=== PATIENT | male | born 1960 | race Caucasian/White ===

== ENCOUNTER 2016-12-08 18:33 | Inpatient (IN) | payer OTHER ==
[~2016-12-08] VITALS: Ht 167.6 cm; Wt 94.5 kg
[~2016-12-08 18:33] MED LIST: APAP/HYDROCODON1 T46 PO; ASPIRIN; ASPIRIN325 MG PO; CITALOPRAM10 MG PO; EFFIENT10 MG PO; LIPITOR40 MG PO; Lopressor25 MG PO; SPIRIVA18 MCG PO; VENTOLIN H0.09 MG/AC INH
[2016-12-08 18:43] VITALS: BP 143/85
[2016-12-08] MEDS ORDERED: CITRATE OF1.75 GM/31 PO (18:44)
[2016-12-08] MEDS ORDERED: COUMADIN0.5 MG PO (18:45)
[2016-12-08] MEDS ORDERED: ZOCOR20 MG PO (18:46)
[2016-12-08] MEDS ORDERED: AMITRIPTYLINE25 MG PO (18:46)
[2016-12-08] MEDS ORDERED: TIKOSYN0.5 MG PO (18:46)
[2016-12-08] MEDS ORDERED: TOPAMAX50 MG PO (18:46)
[2016-12-08] MEDS ORDERED: LISINOPRIL5 MG PO (18:47)
[2016-12-08] MEDS ORDERED: ISOSORBIDE DINI30 MG PO (18:47)
[2016-12-08] MEDS ORDERED: TOPROL XL50 M1 PO (18:47)
[2016-12-08 19:28] VITALS: BP 122/81
[2016-12-08 19:34] LABS: BILIRUBIN NEGATIVE (NEGATIVE); BLOOD NEGATIVE (NEGATIVE); CLARITY SL CLOUDY (CLEAR); COLOR YELLOW (YELLOW); GLUCOSE NEGATIVE (NEGATIVE); KETONE NEGATIVE (NEGATIVE); LEUKO ESTERASE NEGATIVE (NEGATIVE); NITRITE NEGATIVE (NEGATIVE); PROTEIN NEGATIVE (NEGATIVE); UROBILINOGEN 0.2 E.U./dl (0.2-1.0)
[2016-12-08 19:41] LABS: URINE REFLEX COMMENT YES (NO)
[2016-12-08 19:42] LABS: BACTERIA 2+; RBC 0-2 rbc/hpf (0-2); WBC 0-2 wbc/hpf (0-5)
[2016-12-08 20:05] LABS: BASO # 0.1 10*3/uL (0.0-0.1); BASO % 0.7 % (0.0-1.0); EOS # 0.3 10*3/uL (0.0-0.4); EOS % 3.7 % (1.0-4.0); HEMATOCRIT 47.5 % (42.0-52.0); HEMOGLOBIN 16.2 g/dl (14.0-18.0); LYMPH % 27.7 % (27.0-41.0); MEAN CORPUSCULAR HGB CONC 34.1 g/dl (33.0-37.0); MEAN PLATELET VOLUME 10.8 fl (9.6-12.3); MONO # 0.6 10*3/uL (0.1-1.0); MONO % 7.6 % (3.0-9.0); NEUT # 4.3 10*3/uL (2.3-7.9); NEUT % 59.7 % (47.0-73.0); PLATELET COUNT AUTOMATED 197 10*3/uL (130-400); RED BLOOD COUNT 5.22 10*6/uL (4.50-5.90); RED CELL DISTRI WIDTH 13.2 % (0-14.5); WHITE BLOOD COUNT 7.2 10*3/uL (4.8-10.8)
[2016-12-08 20:16] LABS: ALBUMIN 3.5 gm/dl (3.1-4.5); ALKALINE PHOSPHATASE 53 U/L (45-117); BILIRUBIN, TOTAL 0.3 mg/dl (0.2-1.0); BUN 15 mg/dl (7-24); CARBON DIOXIDE 26 mmol/L (21-32); CHLORIDE 107 mmol/L (98-107); EST GLOM FILT AFRICAN AMERICAN > 60 ml/min; GLUCOSE 105 mg/dL (65-99); POTASSIUM 4.3 mmol/L (3.5-5.1); SGOT/AST 21 IU/L (3-35); SGPT/ALT 29 U/L (12-78); SODIUM 143 mmol/L (136-145); TOTAL PROTEIN 6.6 gm/dL (6.4-8.2)
[2016-12-08 20:19] LABS: C-REACTIVE PROTEIN < 0.29 MG/DL (0-0.3)
[2016-12-08 20:30] VITALS: BP 143/89
[2016-12-09] VITALS: BP 142/94
[2016-12-09] MEDS ORDERED: Ipratropium Brom3 ML INH (00:41)
[2016-12-09 06:43] LABS: BASO % 0.6 % (0.0-1.0); EOS # 0.3 10*3/uL (0.0-0.4); EOS % 4.4 % (1.0-4.0); HEMATOCRIT 46.9 % (42.0-52.0); HEMOGLOBIN 16.1 g/dl (14.0-18.0); LYMPH # 1.8 10*3/uL (1.3-4.4); LYMPH % 27.3 % (27.0-41.0); MEAN CELL VOLUME 91.1 fl (80.0-94.0); MEAN CORPUSCULAR HGB 31.3 pg (27.0-31.0); MEAN CORPUSCULAR HGB CONC 34.3 g/dl (33.0-37.0); MEAN PLATELET VOLUME 10.9 fl (9.6-12.3); MONO # 0.5 10*3/uL (0.1-1.0); MONO % 7.7 % (3.0-9.0); NEUT # 3.9 10*3/uL (2.3-7.9); NEUT % 59.4 % (47.0-73.0); PLATELET COUNT AUTOMATED 172 10*3/uL (130-400); RED BLOOD COUNT 5.15 10*6/uL (4.50-5.90); RED CELL DISTRI WIDTH 13.1 % (0-14.5); WHITE BLOOD COUNT 6.5 10*3/uL (4.8-10.8)
[2016-12-09 07:20] LABS: ALBUMIN 3.3 gm/dl (3.1-4.5); BUN 12 mg/dl (7-24); CARBON DIOXIDE 27 mmol/L (21-32); CHLORIDE 108 mmol/L (98-107); CHOLESTEROL 161 mg/dL (<200); EST GLOM FILT AFRICAN AMERICAN > 60 ml/min; GLUCOSE 81 mg/dL (65-99); MAGNESIUM 2.5 mg/dL (1.5-2.1); PHOSPHOROUS 2.5 mg/dL (2.5-4.9); POTASSIUM 4.2 mmol/L (3.5-5.1); SGOT/AST 17 IU/L (3-35); SGPT/ALT 28 U/L (12-78); SODIUM 143 mmol/L (136-145); TRIGLYCERIDES 208 mg/dl (<150); VLDL CHOLESTEROL 42 mg/dL (6-40)
[2016-12-09 07:27] LABS: ALKALINE PHOSPHATASE 51 U/L (45-117); BILIRUBIN, TOTAL 0.4 mg/dl (0.2-1.0); FREE T4 0.83 ng/dl (0.76-1.46); HDL CHOLESTEROL 35 mg/dl (40-60); LDL CHOLESTEROL 84 mg/dL (9-159); TOTAL PROTEIN 6.3 gm/dL (6.4-8.2)
[2016-12-09 08:00] VITALS: BP 134/84
[2016-12-09 08:13] LABS: FOLIC ACID 7.73 ng/mL (>5.38); VITAMIN D, 25-HYDROXY 27.2 ng/mL (30-100)
[2016-12-09 12:00] VITALS: BP 138/83
[2016-12-09] MEDS ORDERED: Oscal,Oyster S500 MG PO (12:01)
[2016-12-09] MEDS ORDERED: VITAMIN D1000 IU PO (12:04)
== END 2016-12-09 14:40 | disposition home or self-care (01) | DRG 392 ==
LOC: ED 18:33 → 5E 21:02 → EDHOLD 21:02 → 5E 21:45
PROVIDERS: Emergency Medicine Emergency Medical Services; Family Medicine
DX: R10.9 Unspecified abdominal pain (principal); G40.209 Localization-related (focal) (partial) symptomatic epilepsy and epileptic syndromes with complex partial seizures, not intractable, without status epilepticus; K59.00 Constipation, unspecified; R73.9 Hyperglycemia, unspecified; J44.9 Chronic obstructive pulmonary disease, unspecified; I25.10 Atherosclerotic heart disease of native coronary artery without angina pectoris; F17.210 Nicotine dependence, cigarettes, uncomplicated; F41.9 Anxiety disorder, unspecified; E66.9 Obesity, unspecified; R82.71 Bacteriuria; Z79.01 Long term (current) use of anticoagulants; Z79.899 Other long term (current) drug therapy; Z72.89 Other problems related to lifestyle; Z90.49 Acquired absence of other specified parts of digestive tract; Z80.0 Family history of malignant neoplasm of digestive organs; Z71.6 Tobacco abuse counseling; Z68.33 Body mass index [BMI] 33.0-33.9, adult

== ENCOUNTER → 2017-05-10 | Day surgery (SDC) | payer OTHER ==
[~2017-05-10] VITALS: Ht 167.6 cm; Wt 93.0 kg
[2017-05-10] VITALS (10 sets, daily range): BP systolic 110–162; BP diastolic 74–100
[~2017-05-10] MED LIST changes: +AMITRIPTYLINE25 MG PO; +CITRATE OF1.75 GM/31 PO; +CLINDAMYCIN150 MG PO; +COUMADIN0.5 MG PO; +ISOSORBIDE DINI30 MG PO; +Ipratropium Brom3 ML INH; +LISINOPRIL5 MG PO; +NORCO 5-325 TA1 EACH PO; +Oscal,Oyster S500 MG PO; +TIKOSYN0.5 MG PO; +TOPAMAX50 MG PO; +TOPROL XL50 M1 PO; +VITAMIN D1000 IU PO; +ZOCOR20 MG PO
--- NOTE | ~2017-05-10 | EKG ---
[place], [place] ELECTROCARDIOGRAM REPORT NAME: CHICA CORLEY UNIT #: [id number] ROOM: DOCTOR: BELLO RICHARDSON,TEE BIRTHDATE: [birth year] DOS: 05/10/2017 TIME: 1136 hours. IMPRESSION: 1. Sinus rhythm. 2. Right bundle branch block. 3. Left anterior fascicular block. 4. Non-specific ST elevation. 5. Prolonged QTc interval. TEE MONSALVE MD CM:EKGRPT:ELECTROCARDIOGRAM REPORT [id number] TEE MONSALVE MD
--- NOTE | ~2017-05-10 | O ---
[place], [place] OPERATIVE NOTE NAME: CHICA CORLEY UNIT #: [id number] ROOM: DOCTOR: MOHINDER PAYNE DMD BIRTHDATE: [birth year] DOS: PREOPERATIVE DIAGNOSES: Caries, periodontal disease and anxiety. POSTOPERATIVE DIAGNOSES: Caries, periodontal disease and anxiety. ANESTHESIA: General anesthesia with nasotracheal intubation. FLUIDS: Minimal. ESTIMATED BLOOD LOSS: Minimal. COMPLICATIONS: None. CONDITION: To PACU, stable. DESCRIPTION OF PROCEDURE: The patient was brought to the OR and placed in supine position. IV and EKG lines were placed. Nasotracheal intubation and general anesthesia was administered. The patient was prepped and draped for oral procedures. Risks and benefits were explained to the patient prior to surgery. Clinical exam and x-rays taken determined nonrestorable maxillary and mandibular dentition. PROCEDURES PERFORMED: Complete extraction of teeth #6, 7, 8, 9, 10, 11, 13, 20, 21, 22, 23, 24, 25, 26, 27, 28 and 29. Full thickness flaps with moderate alveoplasty, Gelfoam and 4-0 Vicryl sutures were placed. Maxillary temporary denture was tried in. Lavage x 2. Throat pack removed. The patient left the OR in good condition and went to PACU. MOHINDER PAYNE DMD CM:OPRECORD:OPERATIVE NOTE [id number] MOHINDER PAYNE DMD 05/11/17 1058 interface
== END | disposition home or self-care (01) ==
LOC: SDC 05-04 09:30
DX: K02.9 Dental caries, unspecified (principal); I25.2 Old myocardial infarction; I48.91 Unspecified atrial fibrillation; J44.9 Chronic obstructive pulmonary disease, unspecified; F17.210 Nicotine dependence, cigarettes, uncomplicated; Z79.899 Other long term (current) drug therapy; Z79.01 Long term (current) use of anticoagulants; Z90.49 Acquired absence of other specified parts of digestive tract

== ENCOUNTER 2017-06-30 10:31 | Emergency (ER) | payer OTHER ==
[~2017-06-30] VITALS: Wt 92.1 kg
[2017-06-30 11:22] LABS: BILIRUBIN NEGATIVE (NEGATIVE); BLOOD NEGATIVE (NEGATIVE); CLARITY SL CLOUDY (CLEAR); COLOR YELLOW (YELLOW); GLUCOSE NEGATIVE (NEGATIVE); KETONE NEGATIVE (NEGATIVE); LEUKO ESTERASE NEGATIVE (NEGATIVE); NITRITE NEGATIVE (NEGATIVE); PH 6.5 (5.0-9.0); SPECIFIC GRAVITY 1.015 (1.005-1.030); UROBILINOGEN 0.2 E.U./dl (0.2-1.0)
[2017-06-30 11:22] LABS: BASO # 0.1 10*3/uL (0.0-0.1); BASO % 0.7 % (0.0-1.0); EOS # 0.2 10*3/uL (0.0-0.4); EOS % 2.3 % (1.0-4.0); HEMATOCRIT 49.3 % (42.0-52.0); HEMOGLOBIN 16.8 g/dl (14.0-18.0); LYMPH # 1.6 10*3/uL (1.3-4.4); LYMPH % 23.8 % (27.0-41.0); MEAN CELL VOLUME 90.3 fl (80.0-94.0); MEAN CORPUSCULAR HGB 30.8 pg (27.0-31.0); MEAN CORPUSCULAR HGB CONC 34.1 g/dl (33.0-37.0); MEAN PLATELET VOLUME 11.4 fl (9.6-12.3); MONO # 0.4 10*3/uL (0.1-1.0); NEUT # 4.6 10*3/uL (2.3-7.9); NEUT % 66.9 % (47.0-73.0); PLATELET COUNT AUTOMATED 241 10*3/uL (130-400); RED BLOOD COUNT 5.46 10*6/uL (4.50-5.90); RED CELL DISTRI WIDTH 13.1 % (0-14.5); WHITE BLOOD COUNT 6.9 10*3/uL (4.8-10.8)
[2017-06-30 11:32] LABS: MUCOUS 2+
[2017-06-30 11:37] LABS: ALBUMIN 3.7 gm/dl (3.1-4.5); ALKALINE PHOSPHATASE 55 U/L (45-117); BUN 17 mg/dl (7-24); CHLORIDE 109 mmol/L (98-107); CREATININE 1.32 mg/dL (0.70-1.30); POTASSIUM 4.5 mmol/L (3.5-5.1); SGOT/AST 17 IU/L (3-35); SGPT/ALT 33 U/L (12-78); SODIUM 140 mmol/L (136-145)
== END 2017-06-30 14:35 | disposition home or self-care (01) ==
LOC: ED 10:31
PROVIDERS: Nurse Practitioner Family
DX: R10.31 Right lower quadrant pain (principal); F17.200 Nicotine dependence, unspecified, uncomplicated; Z90.49 Acquired absence of other specified parts of digestive tract

== ENCOUNTER → 2022-01-04 | Outpatient (CLI) | payer OTHER | END | disposition home or self-care (01) | LOC: ORTHO 03:21 | PROVIDERS: ATTEND Orthopaedic Surgery | DX: M25.552 Pain in left hip (principal) ==

== ENCOUNTER → 2023-12-14 | Outpatient (CLI) | payer OTHER | LOC: US 08:30 | PROVIDERS: ATTEND Family Medicine | DX: K76.89 Other specified diseases of liver (principal) ==